=== PATIENT | male | born 1935 | race Hispanic/Latino ===

== ENCOUNTER 2018-12-06 05:30 | Day surgery (SDC) | payer OTHER ==
[~2018-12-06] VITALS: Ht 162.6 cm; Wt 56.2 kg
[2018-12-06] VITALS (9 sets, daily range): BP systolic 78–132; BP diastolic 28–59
[2018-12-06] MEDS ORDERED: SODIUM CHLORIDE 0.9% 1000ML 1,000 ML IV ONE (05:44)
[2018-12-06] MEDS ORDERED: ESCI5TAB10 PO (06:27)
[2018-12-06] MEDS ORDERED: FERR-63 PO (06:27)
[2018-12-06] MEDS ORDERED: FURO20TA4 PO (06:27)
[2018-12-06] MEDS ORDERED: LINA5TAB PO (06:27)
[2018-12-06] MEDS ORDERED: DOCU100C33 PO (06:27)
[2018-12-06] MEDS ORDERED: LISI2.5T2 PO (06:27)
[2018-12-06] MEDS ORDERED: ATOR40TA71 PO (06:27)
[2018-12-06] MEDS ORDERED: PROPOFOL 10 MG/ML 20ML VIAL IV ONE ×2 (06:33)
[2018-12-06] MEDS ORDERED: PHENYLEPHRINE HCL 10 MG/ML 1ML VIAL IV ONE (06:39)
[2018-12-06] MEDS ORDERED: GLYCOPYRROLATE 0.2 MG/ML 5 ML VIAL ONE (06:54)
== END 2018-12-06 07:30 | disposition home or self-care (01) ==
LOC: DAH 05:30 → ENDO 05:30
PROVIDERS: ATTEND Internal Medicine
DX: K29.50 Unspecified chronic gastritis without bleeding (principal); D50.9 Iron deficiency anemia, unspecified; K22.8 Other specified diseases of esophagus; K56.2 Volvulus; E11.9 Type 2 diabetes mellitus without complications; Z79.899 Other long term (current) drug therapy; Z79.84 Long term (current) use of oral hypoglycemic drugs; Z86.73 Personal history of transient ischemic attack (TIA), and cerebral infarction without residual deficits
CPT/HCPCS: 43239; 82948; 88305; 93005; A4606; J2370; J2704 ×2; J3490; J7030